=== PATIENT | male | born 1935 | race Caucasian/White ===

== ENCOUNTER 2017-05-10 23:24 | Inpatient (IN) | payer MEDICARE, OTHER ==
[~2017-05-10] VITALS: Ht 193 cm; Wt 115.7 kg
[~2017-05-10 23:24] MED LIST: ADULT LOW DOSE81 M1 PO; ADULT LOW DOSE81 MG PO; BABY ASPIRIN81 MG PO; BUPROPION PO; BYETTA10 MCG/0.0; CALCIUM; CALCIUM + D T1 UDTAB; CENTRUM SILVER1 EAC3 PO; CENTRUM SILVER1 TA PO; CIPRO500 MG; COUMADIN5 M2 PO; COUMADIN5 MG PO; CPAP; DHEA25 MG; EPA; ETODOLAC400 MG; ETODOLAC400 MG PO; FISH OIL + D31 EACH PO; FISH OIL 1,0001 CA; FISH OIL 1,2001 CAP PO; FISH OIL300 M1 PO; GARLIC OIL1000 M1 PO; GARLIC100 M1 PO; GARLIC100 MG; GARLIC1000 MG PO; HUMULIN N100 UNIT/2 SC; HUMULIN R100 UNITS/ SC; HYDROCHLOROTHIA25 MG; HYDROCHLOROTHIA25 MG PO; KEFLEX500 MG PO; LASIX40 M1 PO; LASIX40 MG PO; LEVAQUIN500 MG; LISINOPRIL40 MG PO; METOPROLOL TART25 M1 PO; METOPROLOL TART25 MG PO; MILK OF MA400 MG/5 M; NORVASC5 MG; NOVOLIN N100 U/ML; NOVOLIN R100 U/ML; NOVOLIN R100 U/ML SC; PERCOCET 5-3251 EACH PO; QUESTRAN LIGHT210 G1 PO; SALMON OIL-1,001 CAP; TRIAMTERENE PO; TRIAMTERENE-HC1 EAC1 PO; TYLENOL325 M2 PO; TYLENOL325 MG; WELLBUTRIN SR150 M2 PO; WELLBUTRIN75 MG PO; ZESTRIL40 M2 PO; ZESTRIL40 MG; ZOCOR40 M1 PO; ZOCOR40 MG PO; [UNRECOGNIZED DRUG - OTHER]; [UNRECOGNIZED DRUG - OTHER]; [UNRECOGNIZED DRUG - OTHER] SC
[2017-05-10] MEDS ORDERED: NOVOLIN R100 UNIT/1 SC (23:33)
[2017-05-10] MEDS ORDERED: VITAMIN K100 MC1 (23:33)
[2017-05-10 23:57] LABS: BASO % 0.2 % (0-2); EOS % 0.2 % (0-7); HCT-HEMATOCRIT 37.1 % (36.0-53.5); HGB-HEMOGLOBIN 12.4 gm/dl (13.5-17.0); IMMATURE GRANULOCYTES ABSOLUTE 0.05 tho/cmm (0-0.03); IMMATURE GRANULOCYTES PERCENT 0.5 % (0-0.3); LYMPH % 8.9 % (20-45); MCH (MEAN CORPUSCULAR HGB) 30.8 pg (28.0-32.0); MCHC MEAN CORPUSCULAR HGB CONC 33.4 % (32.0-36.0); MCV (MEAN CELL VOLUME) 92.3 fl (82.0-96.0); MEAN PLATELET VOLUME 10.9 cmc (9.4-12.4); MONO % 10.1 % (0-12); MONOCYTE ABSOLUTE COUNT 1.1 tho/cmm (0.0-1.2); NEUTROPHIL ABSOLUTE COUNT 8.9 tho/cmm (1.6-8.0); NEUTROPHIL-AUTOMATED 8.9 tho/cmm (1.6-8.0); NEUTROPHILS % 80.1 % (40-80); PLATELET COUNT 235 tho/cmm (150-450); RED BLOOD COUNT 4.02 mil/cmm (4.40-5.70); RED CELL DISTRIBUTION WIDTH 13.2 % (12.4-16.4); WHITE BLOOD COUNT 11.1 tho/cmm (4.0-10.0)
[2017-05-11] LABS: INR 1.2 INR (0.9-1.1); PROTHROMBIN TIME 14.5 SECONDS (9.0-13.6)
[2017-05-11 00:25] LABS: ALB/GLOB RATIO 0.5 (0.8-2.0); ALBUMIN 2.1 g/dl (3.5-5.0); ALKALINE PHOSPHATASE 154 U/L (33-138); ALT/SGPT 22 U/L (12-78); ANION GAP 14 mmol/L (0-20); AST/SGOT 28 U/L (10-40); BILIRUBIN,TOTAL 0.8 mg/dl (0.0-1.5); BLOOD UREA NITROGEN 23 mg/dl (6-24); CALCIUM 7.9 mg/dl (8.5-10.5); CARBON DIOXIDE-VENOUS 27 mmol/L (22-32); CHLORIDE 99 mmol/l (96-110); CREATININE 1.54 mg/dl (0.60-1.30); GLUCOSE 286 mg/dL (70-110); MAGNESIUM 1.6 mg/dl (1.8-2.6); POTASSIUM 4.4 mmol/L (3.7-5.1); SODIUM 136 mmol/L (135-145); eGFR VALUE FOR BLACK 48 mL/Min
[2017-05-11 00:29] LABS: TSH-THYROID STIMULATING HORM. 3.52 uIU/ml (0.40-3.80)
[2017-05-11 02:20] LABS: URINE LEUKOCYTE ESTERASE NEGATIVE (NEG); URINE PROTEIN LARGE (NEG)
[2017-05-11 02:26] LABS: URINE APPEARANCE CLEAR; URINE BILIRUBIN NEGATIVE (NEG); URINE BLOOD LARGE (NEG); URINE COLOR YELLOW; URINE GLUCOSE (UA) MODERATE (NEG); URINE KETONE NEGATIVE (NEG); URINE NITRITE NEGATIVE (NEG)
[2017-05-11 02:34] LABS: URINE EPITHELIAL CELLS 0-2 /[HPF] (0-10); URINE RBC 0-2 /[HPF] (0-5); URINE WBC 0-1 /[HPF] (0-5)
[2017-05-11] MEDS ORDERED: NOVOLOG100 UNITS/ (03:08)
[2017-05-11] MEDS ORDERED: CENTRUM SILVER1 EAC7 PO (05:19)
[2017-05-11 07:56] LABS: BASO % 0.3 % (0-2); EOS % 0.4 % (0-7); HCT-HEMATOCRIT 33.1 % (36.0-53.5); HGB-HEMOGLOBIN 11.2 gm/dl (13.5-17.0); IMMATURE GRANULOCYTES ABSOLUTE 0.06 tho/cmm (0-0.03); IMMATURE GRANULOCYTES PERCENT 0.6 % (0-0.3); LYMPH % 11.3 % (20-45); LYMPH ABSOLUTE COUNT 1.2 tho/cmm (0.8-4.5); MCH (MEAN CORPUSCULAR HGB) 30.5 pg (28.0-32.0); MCHC MEAN CORPUSCULAR HGB CONC 33.8 % (32.0-36.0); MCV (MEAN CELL VOLUME) 90.2 fl (82.0-96.0); MEAN PLATELET VOLUME 10.7 cmc (9.4-12.4); MONO % 12.3 % (0-12); MONOCYTE ABSOLUTE COUNT 1.3 tho/cmm (0.0-1.2); NEUTROPHIL ABSOLUTE COUNT 7.8 tho/cmm (1.6-8.0); NEUTROPHIL-AUTOMATED 7.8 tho/cmm (1.6-8.0); NEUTROPHILS % 75.1 % (40-80); PLATELET COUNT 185 tho/cmm (150-450); RED BLOOD COUNT 3.67 mil/cmm (4.40-5.70); RED CELL DISTRIBUTION WIDTH 13.3 % (12.4-16.4); WHITE BLOOD COUNT 10.4 tho/cmm (4.0-10.0)
[2017-05-11 07:58] LABS: INR 1.3 INR (0.9-1.1)
[2017-05-11 08:13] LABS: BLOOD UREA NITROGEN 24 mg/dl (6-24); CALCIUM 7.3 mg/dl (8.5-10.5); CARBON DIOXIDE-VENOUS 28 mmol/L (22-32); CHLORIDE 102 mmol/l (96-110); CREATININE 1.21 mg/dl (0.60-1.30); SODIUM 135 mmol/L (135-145); eGFR VALUE FOR BLACK 64 mL/Min
[2017-05-11 08:16] LABS: ANION GAP 9 mmol/L (0-20); GLUCOSE 89 mg/dL (70-110)
[2017-05-11 12:47] LABS: C-REACTIVE PROTEIN 11.8 mg/dl (0-0.9)
[2017-05-11 13:29] LABS: PROCALCITONIN 0.32 ng/ml (0.05-0.09)
[2017-05-13 06:39] LABS: INR 1.3 INR (0.9-1.1); PROTHROMBIN TIME 15.7 SECONDS (9.0-13.6)
[2017-05-13 06:44] LABS: HGB-HEMOGLOBIN 10.8 gm/dl (13.5-17.0); PLATELET COUNT 256 tho/cmm (150-450)
[2017-05-14 07:02] LABS: INR 1.7 INR (0.9-1.1)
[2017-05-14 07:12] LABS: ANION GAP 9 mmol/L (0-20); BASO % 0.6 % (0-2); BLOOD UREA NITROGEN 25 mg/dl (6-24); CALCIUM 7.4 mg/dl (8.5-10.5); CARBON DIOXIDE-VENOUS 28 mmol/L (22-32); CHLORIDE 104 mmol/l (96-110); CREATININE 1.25 mg/dl (0.60-1.30); EOS % 6.1 % (0-7); EOSINOPHIL ABSOLUTE COUNT 0.4 tho/cmm (0.0-0.7); GLUCOSE 109 mg/dL (70-110); HCT-HEMATOCRIT 32.2 % (36.0-53.5); HGB-HEMOGLOBIN 10.7 gm/dl (13.5-17.0); IMMATURE GRANULOCYTES ABSOLUTE 0.05 tho/cmm (0-0.03); IMMATURE GRANULOCYTES PERCENT 0.8 % (0-0.3); LYMPH % 22.7 % (20-45); LYMPH ABSOLUTE COUNT 1.5 tho/cmm (0.8-4.5); MCH (MEAN CORPUSCULAR HGB) 30.4 pg (28.0-32.0); MCHC MEAN CORPUSCULAR HGB CONC 33.2 % (32.0-36.0); MCV (MEAN CELL VOLUME) 91.5 fl (82.0-96.0); MEAN PLATELET VOLUME 10.2 cmc (9.4-12.4); MONO % 9.3 % (0-12); MONOCYTE ABSOLUTE COUNT 0.6 tho/cmm (0.0-1.2); NEUTROPHILS % 60.5 % (40-80); PLATELET COUNT 242 tho/cmm (150-450); POTASSIUM 3.9 mmol/L (3.7-5.1); RED BLOOD COUNT 3.52 mil/cmm (4.40-5.70); RED CELL DISTRIBUTION WIDTH 13.6 % (12.4-16.4); SODIUM 137 mmol/L (135-145); WHITE BLOOD COUNT 6.6 tho/cmm (4.0-10.0); eGFR VALUE FOR BLACK 61 mL/Min
== END 2017-05-14 13:45 | DRG 641 ==
LOC: EDMED → EDBD 23:24 → EDMED 05-11 04:05 → EMR2 05-11 04:29 → 5WE 05-11 04:29
PROVIDERS: Emergency Medicine; Internal Medicine; ADMIT Internal Medicine
PROC: 0DJ08ZZ Inspection of Upper Intestinal Tract, Via Natural or Artificial Opening Endoscopic (ICD-10-PCS; principal; 2017-05-12)
PROC: 0DJD8ZZ Inspection of Lower Intestinal Tract, Via Natural or Artificial Opening Endoscopic (ICD-10-PCS; 2017-05-12)
DX: R63.4 Abnormal weight loss (principal); R63.0 Anorexia; E11.9 Type 2 diabetes mellitus without complications; D64.9 Anemia, unspecified; E03.9 Hypothyroidism, unspecified; Z80.0 Family history of malignant neoplasm of digestive organs
CPT/HCPCS: G8978-GP-CK; G8979-GP-CJ; G8980-GP-CK; J0456; J0696; J1170; J1650; J1815; J1956; J7030; J7050; P9612